=== PATIENT | female | born 1995 | race Caucasian/White ===

== ENCOUNTER 2016-06-09 02:10 | Emergency (ER) | payer OTHER ==
[~2016-06-09] VITALS: Ht 162.6 cm; Wt 111.6 kg
[~2016-06-09 02:10] MED LIST: ADDERALL XR 2020 MG PO; KEFLEX500 MG PO; NAPROXEN500 MG PO; OXAYDO5 MG PO; PERCOCET; PROMETHAZINE HC25 M1 PO; SEROQUEL50 MG PO; VALIUM10 MG PO; VIBRAMYCIN100 MG PO; ZOFRAN ODT4 MG PO; ZOFRAN ODT8 MG PO
[2016-06-09 02:50] LABS: HEMATOCRIT 42.7 % (36.0-46.0); MCH 25.5 PG (29.0-34.0); MCHC 31.1 G/DL (30.0-36.0); MCV 81.8 FL (83-99); MEAN PLAT.VOLUME 10.6 uM^3 (9.5-12.4); PLATELET COUNT 319 K/uL (156-360); RBC DIS.WIDTH-CV 13.7 % (11.8-14.6); RBC DIS.WIDTH-SD 40.9 % (39-53); RED BLOOD COUNT 5.22 M/uL (3.80-5.20)
[2016-06-09 03:01] LABS: CHLORIDE 107 mEq/L (99-109); POTASSIUM 4.1 mEq/L (3.7-5.4); SODIUM 141 mEq/L (136-147)
[2016-06-09 03:03] LABS: GLUCOSE 101 mg/dL (70-99)
[2016-06-09 03:04] LABS: ANION GAP 13 MEQ/L (2-14)
[2016-06-09 03:05] LABS: TOTAL BILIRUBIN 0.7 mg/dL (0.0-1.0)
[2016-06-09 03:06] LABS: ALKALINE PHOSPHATASE 77 IU/L (3-129)
[2016-06-09 03:07] LABS: GFR ESTIMATE (CALCULATED) > 59 mL/min/
[2016-06-09 03:08] LABS: UREA NITROGEN (BUN) 8 mg/dL (9-23)
[2016-06-09 03:17] LABS: QUANTITATIVE HCG < 4.0 MIU/ML
[2016-06-09 04:05] LABS: ADD MIUA? YES; BILIRUBIN NEGATIVE; BLOOD NEGATIVE; COLOR YELLOW ((YELLOW)); GLUCOSE (STRIP) NEGATIVE; KETONES 5; LEUKOCYTES NEGATIVE; NITRITE NEGATIVE; PROTEIN (STRIP) 100; SPECIFIC GRAVITY 1.026 (1.000-1.030); UROBILINOGEN 0.2 MG/DL (0.2-1.0)
[2016-06-09 04:14] LABS: SERUM ETHYL ALCOHOL < 10 mg/dL
[2016-06-09 04:20] LABS: BACTERIA NONE SEEN /HPF; EPITHELIAL CELLS 1+ /HPF; MUCUS 4+ /LPF; UCUL ADDED? NO; WHITE BLOOD CELLS 0-5 /HPF (0-5)
[2016-06-09 04:22] LABS: AMPHETAMINE PRESUMPTIVE POSITIVE (500 ng/mL); BARBITURATES NEGATIVE (200 ng/mL); BENZODIAZEPINES NEGATIVE (150 ng/mL); COCAINE NEGATIVE (150 ng/mL); INTERNAL CONTROLS VALID? YES; METHADONE NEGATIVE (200 ng/mL); METHAMPHETAMINE PRESUMPTIVE POSITIVE (500 ng/mL); OPIATES (MORPHINE) NEGATIVE (100 ng/mL); OXYCODONE NEGATIVE (100 ng/mL); PHENCYCLIDINE NEGATIVE (25 ng/mL); PROPOXYPHENE NEGATIVE (300 ng/mL); THC CANNABINOIDS PRESUMPTIVE POSITIVE (50 ng/mL); TRICYCLIC ANTIDEPRESSANTS NEGATIVE (300 ng/mL)
[2016-06-09 04:23] LABS: ADD MEDTOX COMMENT Y
[2016-06-09] MEDS ORDERED: ZOFRAN ODT4 MG PO (05:06)
[2016-06-09 05:22] VITALS: BP 124/68
== END 2016-06-09 05:24 | disposition home or self-care (01) ==
LOC: EXP 02:10 → EME 02:10 → EXP 05:24
PROVIDERS: Physician Assistant Medical
DX: R11.2 Nausea with vomiting, unspecified (principal); F12.10 Cannabis abuse, uncomplicated; R51 Headache; F17.200 Nicotine dependence, unspecified, uncomplicated
CPT/HCPCS: 80053; 81003; 84702; 84999; 85027; 99281; 99284; G0480

== ENCOUNTER 2016-11-20 08:55 | Emergency (ER) | payer OTHER ==
[~2016-11-20] VITALS: Ht 162.6 cm; Wt 111.7 kg
[2016-11-20] MEDS ORDERED: TRAMADOL HCL50 MG PO (11:56)
[2016-11-20] MEDS ORDERED: FLEXERIL10 MG PO (11:56)
[2016-11-20 12:12] VITALS: BP 114/80
== END 2016-11-20 12:13 | disposition home or self-care (01) ==
LOC: EME 08:55
DX: S30.0XXA Contusion of lower back and pelvis, initial encounter (principal); S16.1XXA Strain of muscle, fascia and tendon at neck level, initial encounter; V47.6XXA Car passenger injured in collision with fixed or stationary object in traffic accident, initial encounter; Y92.410 Unspecified street and highway as the place of occurrence of the external cause; F17.200 Nicotine dependence, unspecified, uncomplicated
CPT/HCPCS: 72040; 72100; 99281; 99283

== ENCOUNTER 2016-12-23 00:42 | Emergency (ER) | payer OTHER ==
[~2016-12-23] VITALS: Ht 162.6 cm; Wt 109.5 kg
[~2016-12-23 00:42] MED LIST changes: +FLEXERIL10 MG PO; +TRAMADOL HCL50 MG PO
[2016-12-23 01:28] LABS: EOSINOPHIL (%) 1.4 % (0-5); EOSINOPHIL COUNT 0.2 K/uL (0-0.3); HEMATOCRIT 40.1 % (36.0-46.0); IMMATURE GRANULOCYTE (%) 0.2 % (0.0-0.7); INSTRUMENT ABS NEUTROPHIL CT 7.8 K/uL; LYMPHOCYTE COUNT 3.4 K/uL (1.0-2.8); MCHC 31.4 G/DL (30.0-36.0); MCV 82.7 FL (83-99); MEAN PLAT.VOLUME 10.7 uM^3 (9.5-12.4); MONOCYTE (%) 6.3 % (3-12); MONOCYTE COUNT 0.8 K/uL (0-0.8); NEUTROPHIL (%) 63.8 % (45-76); NEUTROPHIL COUNT 7.8 K/uL (1.8-6.4); PLATELET COUNT 245 K/uL (156-360); RBC DIS.WIDTH-CV 13.7 % (11.8-14.6); RBC DIS.WIDTH-SD 40.4 % (39-53); RED BLOOD COUNT 4.85 M/uL (3.80-5.20); WHITE BLOOD COUNT 12.2 K/uL (4.1-10.2)
[2016-12-23 01:37] LABS: CHLORIDE 110 mEq/L (99-109); POTASSIUM 4.2 mEq/L (3.7-5.4); SODIUM 141 mEq/L (136-147)
[2016-12-23 01:39] LABS: GLUCOSE 118 mg/dL (70-99)
[2016-12-23 01:40] LABS: ANION GAP 10 MEQ/L (2-14)
[2016-12-23 01:40] LABS: COLOR BLOODY ((YELLOW))
[2016-12-23 01:41] LABS: TOTAL BILIRUBIN 0.2 mg/dL (0.0-1.0)
[2016-12-23 01:41] LABS: LEUKOCYTES TRACE; NITRITE NEGATIVE; PH, URINE 7.5 (5-8); SPECIFIC GRAVITY 1.002 (1.000-1.030)
[2016-12-23 01:42] LABS: ADD MIUA? YES; BILIRUBIN NEGATIVE; BLOOD LARGE; GLUCOSE (STRIP) NEGATIVE; KETONES NEGATIVE; PROTEIN (STRIP) 300; UROBILINOGEN 0.2 MG/DL (0.2-1.0)
[2016-12-23 01:42] LABS: ALKALINE PHOSPHATASE 74 IU/L (3-129)
[2016-12-23 01:43] LABS: GFR ESTIMATE (CALCULATED) > 59 mL/min/
[2016-12-23 01:44] LABS: UREA NITROGEN (BUN) 6 mg/dL (9-23)
[2016-12-23 01:48] LABS: RED BLOOD CELLS TNTC /HPF (0-5)
[2016-12-23 01:49] LABS: BACTERIA NONE SEEN /HPF; EPITHELIAL CELLS NONE SEEN /HPF; UCUL ADDED? YES; WHITE BLOOD CELLS 15-20 /HPF (0-5)
[2016-12-23 01:52] LABS: QUANTITATIVE HCG < 4.0 MIU/ML
[2016-12-23] MEDS ORDERED: CIPRO500 MG PO (02:48)
[2016-12-23] MEDS ORDERED: OXYCODONE HCL5 MG PO (02:48)
[2016-12-23] MEDS ORDERED: PYRIDIUM200 MG PO (02:48)
[2016-12-23 03:01] VITALS: BP 112/68
[2016-12-23 03:10] LABS: MUCUS NONE SEEN /LPF
== END 2016-12-23 03:02 | disposition home or self-care (01) ==
LOC: EME 00:42
PROVIDERS: Emergency Medicine
DX: N12 Tubulo-interstitial nephritis, not specified as acute or chronic (principal); F17.200 Nicotine dependence, unspecified, uncomplicated; Z97.5 Presence of (intrauterine) contraceptive device; Z90.49 Acquired absence of other specified parts of digestive tract
CPT/HCPCS: 74176; 80053; 81003; 84702; 85025; 87077; 87086; 87186; 99281; 99284

== ENCOUNTER 2017-04-09 06:27 | Emergency (ER) | payer OTHER ==
[~2017-04-09] VITALS: Ht 162.6 cm; Wt 106.9 kg
[~2017-04-09 06:27] MED LIST changes: +CIPRO500 MG PO; +OXYCODONE HCL5 MG PO; +PYRIDIUM200 MG PO
[2017-04-09 06:30] VITALS: BP 106/71
== END 2017-04-09 09:02 | disposition left against medical advice (07) ==
LOC: EME 06:27
DX: H92.09 Otalgia, unspecified ear (principal); Z53.21 Procedure and treatment not carried out due to patient leaving prior to being seen by health care provider

== ENCOUNTER 2017-04-16 14:47 | Emergency (ER) | payer OTHER ==
[~2017-04-16] VITALS: Ht 162.6 cm; Wt 106.8 kg
[2017-04-16] MEDS ORDERED: VENTOLIN HFA18 GM IH (17:23)
[2017-04-16] MEDS ORDERED: ZOFRAN ODT8 MG PO (17:23)
[2017-04-16 17:32] VITALS: BP 118/80
== END 2017-04-16 17:35 | disposition home or self-care (01) ==
LOC: EME 14:47
DX: J10.1 Influenza due to other identified influenza virus with other respiratory manifestations (principal); F17.200 Nicotine dependence, unspecified, uncomplicated; Z90.49 Acquired absence of other specified parts of digestive tract; Z88.6 Allergy status to analgesic agent
CPT/HCPCS: 87502; 94640; 99281; 99283